=== PATIENT | male | born 1990 | race African-American/Black ===

== ENCOUNTER 2018-06-16 11:36 | Emergency (ER) | payer OTHER ==
[2018-06-16 11:49] VITALS: O2SAT 99
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
[2018-06-16 12:36] VITALS: BP 149/89; TEMP 97.8
== END 2018-06-16 12:34 | disposition home or self-care (01) ==
LOC: ER 11:36
DX: S06.0X0A Concussion without loss of consciousness, initial encounter (principal); S16.1XXA Strain of muscle, fascia and tendon at neck level, initial encounter; Z87.891 Personal history of nicotine dependence; W22.8XXA Striking against or struck by other objects, initial encounter; Y99.0 Civilian activity done for income or pay; Y92.69 Other specified industrial and construction area as the place of occurrence of the external cause